=== PATIENT | female | born 1970 | race Two or more races ===

== ENCOUNTER 2022-03-07 02:45 | Emergency (ER) | payer OTHER ==
[2022-03-07 03:01] VITALS: BP 154/92; PULSE 89; RESP 17; TEMP 97.8; BMI 38.0
[2022-03-07] MEDS ORDERED: ACETAMINOPHEN 500 MG TABLET (FP) PO ONE (03:12)
[2022-03-07] MEDS ORDERED: ACETAMINOPHEN 325 MG TABLET (FP) ONE (03:13)
[2022-03-07] MEDS ORDERED: COLCHICINE 0.6 MG CAP PO ONE ×2 (03:34→05:09)
[2022-03-07] MEDS ORDERED: ALLOPURINOL 100 MG TABLET (FP) PO ONE (03:34)
[2022-03-07 04:40] LABS: BASO % 0.4 % (0-2.0); EOS % 2.4 % (0-4.5); HEMATOCRIT 34.4 % (32.4-45.2); HEMOGLOBIN 11.2 GM/dL (10.7-15.3); LYMPH % 43.6 % (8-40); MCH 25.1 pg (25.7-33.7); MCHC 32.5 g/dl (32.0-36.0); MEAN CELL VOLUME 77.2 fl (80-96); MEAN PLT VOLUME 8.4 fl (7.5-11.1); NEUT % 47.6 % (42.8-82.8); PLATELET COUNT 298 10^3/uL (134-434); RBC 4.45 M/mm3 (3.60-5.2); RDW 15.9 % (11.6-15.6); WHITE BLOOD COUNT 9.3 K/mm3 (4.0-10.0)
[2022-03-07 04:56] LABS: CALCIUM 9.5 mg/dL (8.5-10.1)
[2022-03-07 04:57] LABS: ALBUMIN 3.5 g/dl (3.4-5.0)
[2022-03-07 05:00] LABS: URIC ACID 7.8 mg/dL (2.6-7.2)
[2022-03-07 05:02] LABS: BILIRUBIN,TOTAL 0.2 mg/dL (0.2-1); TOT PROT 7.6 g/dl (6.4-8.2)
[2022-03-07] MEDS ORDERED: COLCHICINE 0.6 MG TAB ONE (05:12)
[2022-03-07 06:11] LABS: ERYTHROCYTE SEDIMENTATION RATE 55 mm/hr (0-30)
== END 2022-03-07 05:31 | disposition home or self-care (01) ==
LOC: JER 02:45
DX: M25.561 Pain in right knee (principal); M10.9 Gout, unspecified
CPT/HCPCS: 36415; 73562-TC-RT-FY; 80053; 84550; 85025; 85651; 86140; 99284-25

== ENCOUNTER 2023-07-13 11:27 | Emergency (ER) | payer OTHER ==
[2023-07-13 11:38] VITALS: BP 154/80; PULSE 95; RESP 18; TEMP 97.5; BMI 31.8
[2023-07-13] MEDS ORDERED: ACETAMINOPHEN 500 MG TABLET (FP) ONE (12:18)
[2023-07-13] MEDS: ACETAMINOPHEN 500 MG TABLET (FP) PO ONE (12:20)
[2023-07-13] MEDS ORDERED: predniSONE 10 MG TABLET (UD) ONE (13:17)
[2023-07-13] MEDS ORDERED: predniSONE 20 MG TABLET (UD) ONE (13:17)
[2023-07-13] MEDS: predniSONE 20 MG TABLET (UD) PO ONE (13:19)
[2023-07-13] MEDS ORDERED: COLCHICINE 0.6 MG TAB ONE (13:40)
[2023-07-13] MEDS: COLCHICINE 0.6 MG CAP PO ONE (13:48)
== END 2023-07-13 13:52 | disposition home or self-care (01) ==
LOC: JERFT 11:27
DX: M79.645 Pain in left finger(s) (principal); M10.9 Gout, unspecified
CPT/HCPCS: 73130-TC-LT-FY; 99283-25